=== PATIENT | male | born 1995 | race Caucasian/White ===

== ENCOUNTER 2020-08-19 01:31 | Emergency (ER) | payer BC ==
[~2020-08-19] VITALS: Ht 170.2 cm; Wt 70.8 kg
--- NOTE | 2020-08-19 01:31 | NUR ---
STATES TOOK TOO MUCH VYVANSE AND HAS VISUAL HALLUCINATIONS STATES 280MG, DENIES SI/HI, PT AAOX4, DENIES SOB/CP VSS, PENDING ER PROVIDER CARLITO
--- NOTE | 2020-08-19 02:01 | NUR ---
SPOKE TO POISON CONTROL. PT TOOK 280MG VYVANSE. CONTROL RECOMMENDS OBSERVATION FOR 6 HOURS. ADMIT IF NO PT IMPROVEMENT. RECOMMENDS EKG, DISTRIBUTION DISPATCHER, HYDRATION, BENZOS, LABS, UA TOX SCREEN, ASA, TYLENOL. MADE AWARE.
[2020-08-19] MEDS ORDERED: IV NS 0.9% 1,000 ML BAG IV ONE (02:30)
[2020-08-19] MEDS ORDERED: LORAZEPAM INJ 2 MG/ML VIAL IV ONE (02:30)
[2020-08-19] MEDS ORDERED: LORAZEPAM INJ 2 MG/ML VIAL ONE (02:36)
[2020-08-19 02:52] LABS: EOSINOPHILS % (AUTO) 1.8 % (0.0-6.0); HEMATOCRIT 36 % (39-51); HEMOGLOBIN 12.2 g/dL (13.5-17.5); LYMPHOCYTES # (AUTO) 1.2 /CMM (0.8-4.8); LYMPHOCYTES % (AUTO) 26.5 % (20.0-44.0); MEAN CORPUSCULAR HGB CONC 34 g/dl (31.0-36.0); MEAN CORPUSCULAR VOLUME 98 fL (80-96); MONOCYTES # (AUTO) 0.5 /CMM (0.1-1.30); NEUTROPHILS # (AUTO) 2.8 /CMM (1.8-8.9); NEUTROPHILS % (AUTO) 60.7 % (43.0-81.0); PLATELET COUNT (AUTO) 194 /CMM (150-450); RED BLOOD CELL COUNT(AUTO) 3.64 MIL/uL (4.5-6.0); WHITE BLOOD COUNT (AUTO) 4.6 K/uL (4.3-11.0)
[2020-08-19 03:05] LABS: CALCIUM, SERUM 9.3 mg/dL (8.5-10.1); CARBON DIOXIDE 25 mmol/L (21-32); CHLORIDE 103 mmol/L (98-107); CREATININE 0.8 mg/dL (0.6-1.3); GLUCOSE 88 mg/dL (74-106); POTASSIUM 3.5 mmol/L (3.5-5.1); SODIUM SERUM 140 mmol/L (136-145); UREA NITROGEN, BLOOD 13 mg/dL (7-18)
[2020-08-19 03:11] LABS: ACETAMINOPHEN 0 ug/ml (10-30); ALANINE AMINOTRANSFERASE 140 U/L (12-78); ALCOHOL, BLOOD < 3 mg/dL (0-0); ALKALINE PHOSPHATASE 64 U/L (46-116); ASPARTATE AMINOTRANSFERASE 134 U/L (15-37); BILIRUBIN,DIRECT 0.9 mg/dL (0.0-0.2); BILIRUBIN,TOTAL 2.4 mg/dL (0.2-1.0); TOTAL PROTEIN, SERUM 7.2 g/dL (6.4-8.2)
--- NOTE | 2020-08-19 06:30 | NUR ---
PT STATES HE FEELS MUCH BETTER, PT ASKING IF HE CAN GO, DR PRATT MADE AWARE, DC PAPERS IN CHART
--- NOTE | 2020-08-19 06:36 | NUR ---
Patient discharged to home in stable condition. Written and verbal after care instructions given. Patient verbalizes understanding of instruction. IV removed. Catheter intact and site benign. Pressure and 4x4 applied to site. No bleeding noted.
[2020-08-19 06:38] VITALS: BP 129/73
== END 2020-08-19 06:38 | disposition home or self-care (01) ==
LOC: ER 01:31
DX: T43.621A Poisoning by amphetamines, accidental (unintentional), initial encounter (principal); R44.1 Visual hallucinations; E80.6 Other disorders of bilirubin metabolism; R74.01 Elevation of levels of liver transaminase levels; R94.31 Abnormal electrocardiogram [ECG] [EKG]; F31.9 Bipolar disorder, unspecified; Y92.89 Other specified places as the place of occurrence of the external cause
CPT/HCPCS: 36415; 80048; 80076; 80143; 80320; 85025; 93005; 96361; 96374; 99291; J2060; J7030; G0480

== ENCOUNTER 2020-08-26 20:13 | Inpatient (IN) | payer BC ==
[~2020-08-26] VITALS: Ht 190.5 cm; Wt 102.2 kg
[2020-08-26] MEDS ORDERED: IV NS 0.9% 1,000 ML BAG IV ONE ×2 (21:30→23:00)
[2020-08-26 22:04] LABS: CALCIUM, SERUM 9.4 mg/dL (8.5-10.1); CREATININE 1.2 mg/dL (0.6-1.3)
[2020-08-26 22:05] LABS: BASOPHILS % (AUTO) 0.3 % (0.0-2.0); HEMATOCRIT 36 % (39-51); HEMOGLOBIN 12.3 g/dL (13.5-17.5); LYMPHOCYTES # (AUTO) 0.9 /CMM (0.8-4.8); LYMPHOCYTES % (AUTO) 9.3 % (20.0-44.0); MEAN CORPUSCULAR HGB CONC 34 g/dl (31.0-36.0); MEAN CORPUSCULAR VOLUME 99 fL (80-96); MONOCYTES # (AUTO) 0.9 /CMM (0.1-1.30); NEUTROPHILS # (AUTO) 8.3 /CMM (1.8-8.9); NEUTROPHILS % (AUTO) 81.4 % (43.0-81.0); PLATELET COUNT (AUTO) 294 /CMM (150-450); RED BLOOD CELL COUNT(AUTO) 3.65 MIL/uL (4.5-6.0); WHITE BLOOD COUNT (AUTO) 10.2 K/uL (4.3-11.0)
[2020-08-26 22:29] LABS: C-REACTIVE PROTEIN 1.1 mg/dL (0.0-0.9)
[2020-08-26] MEDS ORDERED: MAGNESIUM HYDROXIDE 30 ML UDC PO PRN (23:30)
[2020-08-26] MEDS ORDERED: Z GUARD REMEDY 2 OZ OINT TP PRN (23:30)
[2020-08-26] MEDS ORDERED: MAG HYDROX/AL HYDROX/SIMETH 30 ML UDC PO PRN (23:30)
[2020-08-26] MEDS ORDERED: ACETAMINOPHEN 325 MG TABLET PO PRN (23:30)
[2020-08-26] MEDS ORDERED: HYDROCODONE/APAP 5/325MG TABLET PO PRN (23:30)
[2020-08-26] MEDS ORDERED: methylPREDNISolone SOD SUCC 125 MG/2ML VIAL IV ONE (23:30)
[2020-08-26] MEDS ORDERED: ONDANSETRON HCL/PF 4 MG/2 ML VIAL IVP PRN (23:30)
[2020-08-26] MEDS ORDERED: ZOLPIDEM TARTRATE 5 MG TABLET PO PRN (23:30)
[2020-08-26 23:45] VITALS: BP 129/67
[2020-08-27] MEDS: IV NS 0.9% 1,000 ML IV SCH ×2 (00:13→06:49)
[2020-08-27 03:58] LABS: BASOPHILS % (AUTO) 0.1 % (0.0-2.0); EOSINOPHILS % (AUTO) 0.1 % (0.0-6.0); HEMATOCRIT 35 % (39-51); HEMOGLOBIN 11.7 g/dL (13.5-17.5); LYMPHOCYTES # (AUTO) 0.7 /CMM (0.8-4.8); LYMPHOCYTES % (AUTO) 8.1 % (20.0-44.0); MEAN CORPUSCULAR HGB CONC 34 g/dl (31.0-36.0); MEAN CORPUSCULAR VOLUME 98 fL (80-96); MONOCYTES # (AUTO) 0.3 /CMM (0.1-1.30); MONOCYTES % (AUTO) 3.1 % (2.0-12.0); NEUTROPHILS # (AUTO) 7.5 /CMM (1.8-8.9); NEUTROPHILS % (AUTO) 88.6 % (43.0-81.0); PLATELET COUNT (AUTO) 285 /CMM (150-450); RED BLOOD CELL COUNT(AUTO) 3.54 MIL/uL (4.5-6.0); WHITE BLOOD COUNT (AUTO) 8.5 K/uL (4.3-11.0)
[2020-08-27 04:16] LABS: CALCIUM, SERUM 8.1 mg/dL (8.5-10.1); CREATININE 0.8 mg/dL (0.6-1.3); MAGNESIUM 1.9 mg/dL (1.8-2.4); PHOSPHORUS 2.7 mg/dL (2.5-4.9); POTASSIUM 3.5 mmol/L (3.5-5.1)
[2020-08-27 05:49] VITALS: BP 129/67
[2020-08-27] MEDS ORDERED: LORA-259 PO (06:12)
[2020-08-27] MEDS ORDERED: PROP80CA51 PO (06:12)
[2020-08-27] MEDS ORDERED: PREG100C PO (06:12)
[2020-08-27 08:00] VITALS: BP 126/83
[2020-08-27] MEDS ORDERED: NEOMY SULF/BACITRAC ZN/POLY 15 GM TUBE TP SCH (09:00)
[2020-08-27] MEDS ORDERED: methylPREDNISolone SOD SUCC 500 MG in IV NS 0.9% 100 ML IV SCH (11:00)
[2020-08-27] MEDS ORDERED: methylPREDNISolone SOD SUCC 125 MG/2ML VIAL IV SCH (13:00)
== END 2020-08-27 13:45 | disposition home or self-care (01) | DRG 59 ==
LOC: ER 21:18 → MED 23:24
PROVIDERS: ADMIT Family Medicine; ATTEND Internal Medicine
DX: G35 Multiple sclerosis (principal); M62.82 Rhabdomyolysis; F13.20 Sedative, hypnotic or anxiolytic dependence, uncomplicated; E87.2 Acidosis; F90.9 Attention-deficit hyperactivity disorder, unspecified type; D63.8 Anemia in other chronic diseases classified elsewhere; F31.9 Bipolar disorder, unspecified; Z20.822 Contact with and (suspected) exposure to COVID-19; R73.9 Hyperglycemia, unspecified; F10.10 Alcohol abuse, uncomplicated; Y90.0 Blood alcohol level of less than 20 mg/100 ml; F19.10 Other psychoactive substance abuse, uncomplicated; D53.9 Nutritional anemia, unspecified; Z76.5 Malingerer [conscious simulation]
CPT/HCPCS: 36415; 70450-TC; 80048-TC; 80061-TC; 82550-TC; 82553; 83735-TC; 84100-TC; 85025-TC; 85652-TC; 86140-TC; 87081-TC; C9803; G0378; G0480; J2930; J7030

== ENCOUNTER 2021-02-16 12:25 | Emergency (ER) | payer BC ==
[~2021-02-16] VITALS: Ht 190.5 cm; Wt 90.7 kg
[~2021-02-16 12:25] MED LIST: LORA-259 PO; PREG100C PO; PROP80CA51 PO
--- NOTE | 2021-02-16 12:25 | NUR ---
PT BIBRA 88 FROM HOTEL C/O ALCOHOL WITHDRAWL. PT IS AAOX4, NOT IN RESPIRATORY DISTRESS, HOOKED TO ARTICULATION OFFICER, KEPT RESTED AND COMFORTABLE. WILL CONTINUE TO MONITOR.
[2021-02-16] MEDS ORDERED: LORAZEPAM INJ 2 MG/ML VIAL IV ONE ×3 (14:00→16:00)
[2021-02-16] MEDS ORDERED: IV LR 1000 ML 1,000 ML IV ONE (14:00)
[2021-02-16] MEDS ORDERED: Thiamine 100 MG in IV D5W 50 ML IV SCH (14:00)
--- NOTE | 2021-02-16 14:00 | NUR ---
SEEN AND EXMAINED BY .
[2021-02-16] MEDS ORDERED: LORAZEPAM INJ 2 MG/ML VIAL ONE ×2 (14:06→14:51)
[2021-02-16 14:43] LABS: BASOPHILS % (AUTO) 0.7 % (0.0-2.0); EOSINOPHILS % (AUTO) 0.2 % (0.0-6.0); HEMATOCRIT 42 % (39-51); LYMPHOCYTES # (AUTO) 0.6 K/uL (0.8-4.8); LYMPHOCYTES % (AUTO) 18.2 % (20.0-44.0); MEAN CORPUSCULAR HGB CONC 33 g/dl (31.0-36.0); MEAN CORPUSCULAR VOLUME 92 fL (80-96); MONOCYTES # (AUTO) 0.3 K/uL (0.1-1.30); MONOCYTES % (AUTO) 9.9 % (2.0-12.0); NEUTROPHILS # (AUTO) 2.4 K/uL (1.8-8.9); PLATELET COUNT (AUTO) 160 K/uL (150-450); RED BLOOD CELL COUNT(AUTO) 4.59 MIL/uL (4.5-6.0); WHITE BLOOD COUNT (AUTO) 3.4 K/uL (4.3-11.0)
[2021-02-16 15:00] LABS: ALBUMIN 4.1 g/dL (3.4-5.0); BILIRUBIN,TOTAL 1.4 mg/dL (0.2-1.0); CALCIUM, SERUM 8.9 mg/dL (8.5-10.1); MAGNESIUM 1.4 mg/dL (1.8-2.4); POTASSIUM 3.6 mmol/L (3.5-5.1); TOTAL PROTEIN, SERUM 7.6 g/dL (6.4-8.2)
[2021-02-16] MEDS ORDERED: Magnesium 1GM/D5W 100ML PREMIX 100 ML IV ONE ×2 (16:03→16:25)
[2021-02-16] MEDS: Magnesium 1GM/D5W 100ML PREMIX 100 ML IV SCH ×2 (16:04→17:09)
--- NOTE | 2021-02-16 18:05 | NUR ---
IV removed. Catheter intact and site benign. Pressure and 4x4 applied to site. No bleeding noted.
--- NOTE | 2021-02-16 18:12 | NUR ---
Bessy sanchez in ED - 02/16/21 at 1812 by TAWANDA Patient discharged to home in stable condition. Written and verbal after care instructions given. Patient verbalizes understanding of instruction.
--- NOTE | 2021-02-16 18:12 | NUR ---
Patient does not wish to proceed with medical care recommended by Dr. Huertas. Patient given information related to possible complications, up to and including , which could occur as a result of leaving the hospital at this time. Patient verbalizes understanding of risks involved due to leaving against medical advice. Patient has signed AMA form.
[2021-02-16 18:13] VITALS: BP 142/100
== END 2021-02-16 18:13 | disposition left against medical advice (07) ==
LOC: ER 13:32
DX: F10.239 Alcohol dependence with withdrawal, unspecified (principal); R00.0 Tachycardia, unspecified; E83.42 Hypomagnesemia; I10 Essential (primary) hypertension; Z79.899 Other long term (current) drug therapy; Y90.9 Presence of alcohol in blood, level not specified
CPT/HCPCS: 36415; 80053; 80320; 83735; 85025; 93005; 96365; 96366; 96367; 96375; 96376; 99291; J2060 ×2; J3411; J3475 ×2; J7060; J7120 ×2; G0480